=== PATIENT | male | born 1960 | race Caucasian/White ===

== ENCOUNTER 2018-07-18 10:36 | Inpatient (IN) | payer OTHER ==
[~2018-07-18] VITALS: Ht 182.9 cm; Wt 147.4 kg
--- NOTE | ~2018-07-18 | P ---
[facility] [place] [address] PROCEDURE REPORT Name: MADDIE CONWAY Room #: 450-P [facility] IN M.R.#: [id number] Admission: 07/18/18 ������������������ Attend Phys: Humberto Jin MD Discharge: 07/19/18 ������������������ Date of : 64 Report #: [id number] THIS REPORT FOR: //name// CC: Humberto Jin DATE OF SERVICE: 07/19/2018 Diagnostic Flexible Sigmoidoscopy Report The patient of Dr. Humberto Jin. INDICATION FOR PROCEDURE: Painless hematochezia of undetermined etiology. The patient had a colonoscopy approximately 1 year ago. Informed consent for this procedure was obtained prior to the administration of any medication. The risks of the procedure, which include bleeding, perforation, infection, complications of sedation and the possibility I could miss something have been explained to the patient and he has indicated his consent by signing. Propofol was slowly titrated before and during this procedure for patient comfort by the anesthesia service. A digital rectal exam was performed and no abnormalities were palpated. The Olympus colonoscope was introduced through the anal sphincter and advanced under direct visualization to the distal transverse colon. Findings are noted on withdrawal of the scope. The visualized portion of the transverse colon appears normal. Splenic flexure: Normal mucosa. Descending colon: Normal mucosa. It appears that the sigmoid colon has probably been resected and there is a mifa-yj-ezgy anastomosis at this level. There is a single uncomplicated diverticulum just below or distal to this anastomosis. In the rectum, there are some internal hemorrhoids that are seen on retroflex view only. They are nonbleeding at the present time. I saw no blood throughout the left colon or the transverse colon. The scope was withdrawn. The patient went to the recovery area in stable condition. He tolerated the procedure well. IMPRESSION: 1. Nonbleeding internal hemorrhoids were the likely source of the hematochezia that he saw. 2. Uncomplicated sigmoid diverticulosis, rare. 3. No red blood seen in the colon at this time. RECOMMENDATIONS: My recommendations at this point were for him to be able to be discharged home. He should be on a high-fiber diet. He should exercise [address] [place] [address] PROCEDURE REPORT Name: MADDIE CONWAY Room #: 450-P [facility] IN M.R.#: [id number] Admission: 07/18/18 ������������������ Attend Phys: Humberto Jin MD Discharge: 07/19/18 ������������������ Date of : 64 Report #: [id number] regularly like a daily walk and drink 8 glasses of liquid every day to keep the stools soft. I understand that he was somewhat constipated whenever this occurred and it may be that he just needs to add some more fiber or stool softeners or more water to his diet along with the exercise. Thank you very much once again for allowing me to participate in his care, Dr. Jin. ��������������������������������������������� ���������������������������������������� By: ��������������������������������������������� 1412 0713 Brenda Mckeon DO /nt
[2018-07-18 11:30] VITALS: BP 158/104
[2018-07-18] MEDS ORDERED: VALIUM5 MG PO (11:32)
[2018-07-18] MEDS ORDERED: PERCOCET PO (11:33)
[2018-07-18] MEDS ORDERED: HYDROCHLOROTH12.5 M1 PO (11:41)
[2018-07-18] MEDS ORDERED: LISINOPRIL20 MG PO (11:41)
[2018-07-18 13:00] LABS: HEMATOCRIT 46.8 % (42.0-52.0); HEMOGLOBIN 15.9 gm/dL (14.0-18.0); MCH 29.3 pg (26.0-34.0); MCV 86.1 fL (80.0-100.0); RBC 5.44 mil/uL (4.50-6.00); RDW 13.9 % (10.5-14.5)
[2018-07-18 13:18] LABS: ALBUMIN 3.5 g/dL (3.4-5.0); CALCIUM 9.3 mg/dL (8.5-10.1); CREATININE 0.8 mg/dL (0.7-1.3); POTASSIUM 4.1 mmol/L (3.5-5.1); TOTAL BILIRUBIN 0.6 mg/dL (<0.1-1.0); TOTAL PROTEIN 7.7 g/dL (6.4-8.2)
--- NOTE | 2018-07-18 18:27 | NUR ---
PT ARRIVED FROM HOME DIRECT ADMIT. ADMISSION ASSESSMENT, HX AND EDUCATION COMPLETE. DR NOTIFIED, ORDERS IMPLEMENTED, RX RECONCIED, IV STARTED. PT RESTING COMFORTABLY.
[2018-07-18 19:21] VITALS: BP 123/73
[2018-07-19 04:29] VITALS: BP 118/73
[2018-07-19 06:01] LABS: HEMATOCRIT 44.9 % (42.0-52.0)
--- NOTE | 2018-07-19 07:38 | NUR ---
PROGRESS PT A/O X4 UP AD RICO, IV SALINE LOCKED, DENIES PAIN OR NEED FOR PAIN MEDS. VOIDING QS, STATES NO BM THIS SHIFT. PLAN TO HAVE A FLEX SIG. TODAY. CONSENT ON CHART CONTINUE POC.
[2018-07-19 08:35] VITALS: BP 123/83
--- NOTE | 2018-07-19 10:34 | NUR ---
Cm assessment completed at bedside. Pt is a&ox4 and lives independently with is . He is disabled and has SSD/medicare. 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 He drives and has Medicare part D for script coverage. He is having a flex sig this am for lower GI bleed. He denies any dc concerns at this time. No cm interventions indicated. Pt is up ad alejandra in his room. DC to outpt followup anticipated.
--- NOTE | 2018-07-19 13:14 | H ---
[facility] [place] [address] HISTORY AND PHYSICAL Name: MADDIE CONWAY Room #: 450-P [facility] IN M.R.#: [id number] Admission: 07/18/18 ������������������ Attend Phys: Humberto Jin MD Discharge: ������������������ Date of : 64 Report #: [id number] THIS REPORT FOR: //name// CC: Humberto Jin DATE OF SERVICE: 07/18/2018 CHIEF COMPLAINT: Blood in the stool. HISTORY OF PRESENT ILLNESS: The patient is a 58-year-old gentleman who is admitted from home with reports of blood in the stool. I talked to him yesterday in the office, he described a bowel movement 3 days ago where he noted some bright red blood intermixed within the stool. He said there was no heavy bleeding in the toilet or on the tissue, but he just noted some blood mixed within the material itself. He had no abdominal pain, nausea, vomiting. He has not been taking any excessive anti-inflammatories and he does not drink alcohol. Hemoglobin yesterday was 15 in the office; however, he called again this morning and reported to the nurse that he had another bowel movement again today with signs of bright red blood intermixed within the material, again no overt bleeding noted on the tissue or within the toilet itself, just intermixed within the stool material. He has had no nausea or vomiting. PAST MEDICAL HISTORY: Hypertension, morbid obesity, history of traumatic, I believe, lumbar burst fracture about 8-9 years ago, he has chronic back pain as a result. He has had other orthopedic fractures including humerus and shoulder. He had a history of acute appendicitis in 2018 with surgery. He also had a history of acute diverticulitis in 2018 that required IV antibiotics and subsequent partial colectomy. He had a colonoscopy leading up to that surgery. PAST SURGICAL HISTORY: As above. FAMILY HISTORY: Unknown. SOCIAL HISTORY: No chronic alcohol or tobacco use. ALLERGIES: No known drug allergies. MEDICATIONS: Oxycodone 5 mg t.i.d. p.r.n., Valium 5 mg twice a day p.r.n., and recent lisinopril 20 mg a day. REVIEW OF SYSTEMS: Denies headache, chest pain, shortness of breath, abdominal pain, nausea, vomiting, diarrhea, constipation, dysuria, syncope. OBJECTIVE: VITAL SIGNS: Temperature 36.9, pulse 78, respirations 20, blood pressure 158/104, O2 sat 97% on room air. [facility] [address] [place] [address] HISTORY AND PHYSICAL Name: MADDIE CONWAY Room #: 450-P [facility] IN M.R.#: [id number] Admission: 07/18/18 ������������������ Attend Phys: Humberto Jin MD Discharge: ������������������ Date of : 64 Report #: [id number] LUNGS: Clear. HEART: Regular. ABDOMEN: Obese, soft, normoactive bowel sounds. No rebound or guarding. EXTREMITIES: No cyanosis, clubbing or edema. NEUROLOGIC: Cranial nerves intact. Speech is fluent. Motor strength intact. LABORATORY DATA: Hemoglobin is 15.9. ASSESSMENT: 1. Lower gastrointestinal bleed. 2. Hypertension. PLAN: We will keep him on clear liquids with serial lab determinations of hemoglobin. The GI Service has seen him and will consider endoscopy. Antihypertensive treatment to begin. ��������������������������������������������� <ELECTRONICALLY SIGNED> ���������������������������������������� By: Humberto Jin MD ��������������������������������������������� 07/19/18 1314 [id number] Humberto Jin MD /nt
--- NOTE | 2018-07-19 13:16 | NUR ---
TOWARDS POC PT A/O X4, VSS, AFEBRILE. PT STILL ON GI LAB FOR A PROCEDURE AT THIS MOMENT. WILL CONTINUE TO MONITOR.
[2018-07-19] MEDS ORDERED: ATENOLOL 25MG T25 M1 PO (13:40)
[2018-07-19] MEDS ORDERED: OXYCODONE HCL 55 MG PO (13:40)
[2018-07-19 15:07] VITALS: BP 123/83
== END 2018-07-19 15:30 | disposition home or self-care (01) | DRG 393 ==
LOC: EDSEX → 4W 10:36
PROVIDERS: ADMIT Internal Medicine Geriatric Medicine
PROC: 0DJD8ZZ Inspection of Lower Intestinal Tract, Via Natural or Artificial Opening Endoscopic (ICD-10-PCS; principal; 2018-07-19)
DX: K64.8 Other hemorrhoids (principal); K57.31 Diverticulosis of large intestine without perforation or abscess with bleeding; Z68.41 Body mass index [BMI] 40.0-44.9, adult; I10 Essential (primary) hypertension; Z87.81 Personal history of (healed) traumatic fracture; E66.01 Morbid (severe) obesity due to excess calories; Z90.49 Acquired absence of other specified parts of digestive tract; Z80.0 Family history of malignant neoplasm of digestive organs; Z86.010 Personal history of colon polyps; Z79.899 Other long term (current) drug therapy
CPT/HCPCS: 10047; 62110; 62900; 70005